=== PATIENT | female | born 1965 | race Caucasian/White ===

== ENCOUNTER 2017-02-04 06:00 | Inpatient (IN) | payer OTHER ==
[~2017-02-04] VITALS: Ht 162.6 cm; Wt 87.1 kg
--- NOTE | ~2017-02-04 | PN ---
Unit #: [id number] #: [id number] Patient: FLORY HUFFMAN [id number] [facility] [address] [place] [address] [id number] I MR#: [id number] NAME: FLORY HUFFMAN. ROOM: 63 Age: 51 Sex: F Admission Date: 02/04/2017 : 1965 Attending Physician: Israel Harris M.D. Admitting Physician: Israel Harris M.D. Primary Care Physician: Analilia Hollis PROGRESS NOTES DATE 02/09/2017 DISCUSSION Flory is looking a little better this morning with a better mood and a brighter affect. She still complains of significant anxiety but does not appear to be particularly anxious during my assessment. She is able to attend groups and activities now and is more social on the unit. She is alert and fully oriented with no active psychosis. She still has vague suicidal ideation but contracts for safety in the hospital. ASSESSMENT Bipolar depressed. PLAN Continue current treatment plan. Dictated by... Analilia Hicks/tejas TD: 02/11/2017 04:59 JOB #: [id number] [facility] PROGRESS NOTES Page 1 of 1 X Israel Harris MD PROGRESS NOTE
--- NOTE | ~2017-02-04 | PN ---
Unit #: [id number] #: [id number] Patient: FLORY HUFFMAN [id number] [facility] [address] [place] [address] [id number] MR#: [id number] NAME: FLORY HUFFMAN. ROOM: 63 Age: 51 Sex: F Admission Date: 02/04/2017 : 1965 Attending Physician: Israel Harris M.D. Admitting Physician: Israel Harris M.D. Primary Care Physician: Analilia Hollis PROGRESS NOTES DATE 02/08/2017 DISCUSSION Flory continues to be isolative from peers, although she does occasionally come out to talk to staff, she is eating and drinking well and compliant with her medications. She complains of difficulty sleeping. She has a depressed mood with a congruent affect, she is alert and fully oriented with no active psychosis. She continues to report suicidal ideation. She is not engaged in any self-harming behaviors in the hospital. ASSESSMENT Major depression. PLAN Increase trazodone to 150 mg at bedtime, and continue with recently increased dose of Zoloft to 150 mg daily. Dictated by... Analilia Hicks/tejas TD: 02/10/2017 13:18 JOB #: [id number] [facility] BLACK NOTES Page 1 of 1 X Israel Harris MD X PROGRESS NOTE
--- NOTE | ~2017-02-04 | DS ---
Unit #: [id number] #: [id number] Patient: FLORY HUFFMAN [id number] [place] [address] [id number] I MR#: [id number] NAME: FLORY HUFFMAN. ROOM: 63 Age: 51 Sex: F Admission Date: 02/04/2017 : 1965 Discharge Date: 02/11/2017 Attending Physician: Israel Harris M.D. Primary Care Physician: Bharathi Vargas M.D. DISCHARGE SUMMARY REASON FOR ADMISSION Flory is a 51-year-old woman with a previous admission to this facility, who has reported that she felt "lost and don't want to live." She made some cuts on her arm and was admitted for stabilization. DIAGNOSTIC STUDIES LABORATORY RESULTS: Please see hospital chart. HOSPITAL COURSE The patient was admitted and placed on suicide precautions. Zoloft was increased to 150 mg daily and buspirone 15 mg b.i.d. was added for control of anxiety. The patient was initially isolated from peers and staff and complained of difficulty sleeping. Trazodone was increased to 150 mg at bedtime to improve control of insomnia. She was able to get up and around on the unit, participating in psychotherapy groups and activities after a couple of days, and had an episode of acute gastrointestinal upset and treated with Imodium and Zofran. On the date of discharge, she was able to contract for safety in the outpatient setting. DISCHARGE DIAGNOSES AXIS I: Major depression, recurrent, F33.2 and history of polysubstance dependence. AXIS II: Personality disorder, not otherwise specified. AXIS III: Fibromyalgia, hypertension, chronic obstructive pulmonary disease, and chronic pain. AXIS IV: AXIS V: DISCHARGE INSTRUCTIONS Follow up with [facility] and the [facility]. DISCHARGE MEDICATIONS Zoloft 150 mg daily for depression, trazodone 150 mg at bedtime as needed for insomnia, and BuSpar 15 mg b.i.d. for anxiety. Primary care medicines were Zestril 20 mg daily for hypertension, hydrochlorothiazide 12.5 mg daily for hypertension, Singulair 10 mg at bedtime for asthma, and Proventil inhaler 2 puffs every 4 hours as needed for shortness of air. CONDITION AT DISCHARGE Improved. PROGNOSIS Unit #: [id number] #: [id number] Patient: FLORY HUFFMAN Fair to good. DIET AND ACTIVITY Ad eugenie. Dictated by... Analilia Hicks/berhane TD: 02/11/2017 17:46 JOB #: [id number] DISCHARGE SUMMARY Page 1 of 1 X Israel Harris MD X DISCHARGE SUMMARY
--- NOTE | ~2017-02-04 | HP ---
Unit #: [id number] #: [id number] Patient: FLORY HUFFMAN [id number] [place] [address] [id number] I MR#: [id number] NAME: FLORY HUFFMAN. ROOM: P263 Age: 51 Sex: F Admission Date: 02/04/2017 : 1965 Attending Physician: Israel Harris M.D. Admitting Physician: Israel Harris M.D. Primary Care Physician: Bharathi Vargas M.D. HISTORY AND PHYSICAL HISTORY OF PRESENT ILLNESS Flory is a 51 year old admitted to [address] [place] [address] with depression and self-harming behavior. She has been scratching her arms. She has had other admissions to this facility. PAST MEDICAL HISTORY 1. Morbid obesity. 2. High blood pressure. 3. COPD. 4. History of anemia. 5. History of poly-illicit substance abuse to include opioids and methamphetamine. PAST SURGICAL HISTORY 1. Hysterectomy. 2. Cholecystectomy. 3. Right ankle. ALLERGIES Mobic, ibuprofen, tramadol. SOCIAL HISTORY Smokes 1 pack per day. Denies alcohol. Admits to a history of poly-illicit substance abuse to include methamphetamine and opioids. FAMILY HISTORY Medically noncontributory. REVIEW OF SYSTEMS CONSTITUTIONAL: No fever or chills. HEENT: Denies any sore throat, ear pain or runny nose. CARDIOVASCULAR: Denies chest pain, irregular heart rhythm or palpitations. CHEST: Denies shortness of breath or cough. No hemoptysis. GASTROINTESTINAL: Denies nausea, vomiting, diarrhea or chronic constipation. ENDOCRINE: Denies history of increased thirst or urination. No recent significant weight loss or gain. GENITOURINARY: Denies dysuria, frequency, or hematuria. SKIN: Denies any rashes. HEMATOLOGIC: Denies history of increased bleeding or bruising. MUSCULOSKELETAL: Denies any hot, swollen joints. No generalized muscle pain. NEUROLOGIC: Denies problems with vision or speech. No frequent, severe Unit #: [id number] #: [id number] Patient: FLORY HUFFMAN headaches. No numbness, tingling or weakness in any extremities. Denies loss of bladder or bowel control. CURRENT MEDICATIONS 1. HCTZ 12.5 mg daily. 2. Zestril 20 mg daily. 3. Desyrel 100 mg q.h.s. 4. Singulair 10 mg daily. 5. Zoloft 100 mg q.h.s. 6. BuSpar 15 mg b.i.d. 7. Milk of Magnesia p.r.n. 8. Maalox p.r.n. 9. Tylenol p.r.n. 10. Proventil inhaler p.r.n. 11. Nicotine patch 14 mg daily. PHYSICAL EXAMINATION GENERAL: Alert, well-nourished, in no apparent distress. VITAL SIGNS: Blood pressure 154/110, heart rate 80, respirations 16, temperature 98.6. WEIGHT: 192. HEIGHT: 5 feet 4 inches. SKIN: Warm and dry without rash. She does have multiple superficial scratches along both arms. There is no increased redness, swelling, heat or pus noted. HEENT: Normocephalic. TMs not viewed. Oral and nasal passages clear. Conjunctivae clear. PERRLA. EOMs intact. NECK: Supple without lymphadenopathy or thyromegaly. HEART: Regular rate and rhythm without murmur. LUNGS: Clear. ABDOMEN: Soft, nontender. : Not done. EXTREMITIES: No evidence of cyanosis, clubbing or edema. Moves all without focal deficit. NEUROLOGICAL: Grossly within normal limits. Cranial Nerves: II: Visual leal are intact. III, IV AND : Extraocular movements are intact. Pupils are equal, round and reactive to light. V: Facial sensation is grossly normal. VII: Facial movements and expression are normal. VIII: Auditory acuity grossly intact. IX, X: Uvula is midline. Phonation is normal. XI: Patient shrugs shoulders and turns head normally. XII: Tongue protrudes in the midline. Sensory and Motor Function: Sensory and motor sensation is grossly normal. Motor: moves all extremities well. Coordination: Gait is normal. Deep Tendon Reflexes: Intact. IMPRESSION Psychiatric admission. RECOMMENDATIONS PSYCHIATRIC: Per psychiatrist. MEDICAL: 1. See no contraindication to participate in facility's activities. 2. Keep the scratches clean with soap and water. No further Rx. 3. Continue HCTZ and Zestril. Monitor blood pressure q. shift. 4. Continue Proventil inhaler. Unit #: [id number] #: [id number] Patient: FLORY HUFFMAN MEDICAL PROGNOSIS Good. MEDICAL CONDITION Stable. Dictated by... Mavis Koo P.A.-C. for Analilia Hall/ming TD: 02/04/2017 19:59 JOB #: [id number] HISTORY AND PHYSICAL Page 1 of 1 X Mavis Koo X HISTORY AND PHYSICAL
--- NOTE | ~2017-02-04 | PN ---
Unit #: [id number] #: [id number] Patient: FLORY HUFFMAN [id number] [facility] [address] [place] [address] [id number] MR#: [id number] NAME: FLORY HUFFMAN. ROOM: 63 Age: 51 Sex: F Admission Date: 02/04/2017 : 1965 Attending Physician: Israel Harris M.D. Admitting Physician: Israel Harris M.D. Primary Care Physician: Analilia Hollis PROGRESS NOTES DATE 02/06/2017 DISCUSSION Flory is tolerating her increased dose of Zoloft and other medications with no adverse side effects. Her mood is the same with depression, anxiety and congruent affect. She is alert and fully oriented. Her memory and concentration are fair to good. Her thought processes are goal directed with no active psychosis. She does report ongoing suicidal ideation. ASSESSMENT Major depression. PLAN Continue current treatment plan. Dictated by... Analilia Hicks/rika TD: 02/12/2017 03:48 JOB #: [id number] [facility] PROGRESS NOTES Page 1 of 1 X Israel Harris MD X PROGRESS NOTE
--- NOTE | ~2017-02-04 | PA ---
Unit #: [id number] #: [id number] Patient: FLORY HUFFMAN [id number] [place] [address] [id number] I MR#: [id number] NAME: FLORY HUFFMAN. ROOM: [facility] Age: 51 Sex: F Admission Date: 02/04/2017 : 1965 Date of Assessment: Attending Physician: Israel Harris M.D. Admitting Physician: Israel Harris M.D. Primary Care Physician: Bharathi Vargas M.D. PSYCHIATRIC ASSESSMENT DATE OF SERVICE 02/05/2017. INFORMANTS The patient, reliable and OLOP, reliable. CHIEF COMPLAINT Suicidal ideation. HISTORY OF PRESENT ILLNESS Flory is a 51-year-old woman with previous admission to this facility, who reports she was recently discharged from [facility] for a potassium deficiency. She says "I feel lost and don't want to live" and had made superficial bueno on her arm. She was unable to contract for safety and was admitted for psychiatric stabilization. PAST PSYCHIATRIC HISTORY Last admission in this facility was in 05/2010 and she has been at [facility] in the past. FAMILY PSYCHIATRIC HISTORY There is a family history of both mental illness and chemical dependence. SOCIAL HISTORY The patient is to a man who is supportive, but has depression and substance use problems on his own. She has 5 living children with no legal custody. She is a high school graduate, who is currently on disability. PAST MEDICAL HISTORY Significant for back pain, fibromyalgia, COPD, and hypertension. MEDICATIONS Please see MAR. ALLERGIES No known medication allergies. SUBSTANCE ABUSE HISTORY The patient has a history of chemical dependence and legal charges related to same. MENTAL STATUS EXAMINATION Unit #: [id number] #: [id number] Patient: FLORY HUFFMAN The patient presented as a mildly disheveled woman, who appeared her stated age. She was cooperative with the examination. Her speech was spontaneous and easily understood. Musculoskeletal examination was calm. Her mood was depressed with a congruent affect. She was alert and fully oriented. Memory and concentration were fair. Thought processes were goal directed with no active psychosis. She reported suicidal ideation with a plan to cut herself and could not contract for safety outside of the hospital. Her insight and judgment were fair. Her fund of knowledge and abstraction were fair. ASSETS AND LIABILITIES The patient knows local resources and presents voluntarily for treatment. Liabilities include difficulty with housing and income and lack of current treatment plan. ADMITTING DIAGNOSES AXIS I: Major depression, F33.2 and history of polysubstance dependence. AXIS II: Personality disorder, not otherwise specified. AXIS III: Fibromyalgia, hypertension, chronic obstructive pulmonary disease, and chronic pain. AXIS IV: AXIS V: PSYCHIATRIC PLAN The patient was admitted and placed on suicide precautions. Zoloft will be continued with an increase to 150 mg daily and buspirone added 15 mg b.i.d. for anxiety. Her other medications will be continued at their current doses. She will enroll in dual diagnosis groups and activities, and physical examination and laboratory studies will be ordered and reviewed. TREATMENT GOALS Resolution of SI, improvement in mood, improvement in insight, and improvement in coping skills. DISCHARGE PLANNING Follow up with [facility]. ESTIMATED LENGTH OF STAY 5 days. Dictated by... Israel Harris M.D. MALIHA/berhane TD: 02/08/2017 18:00 JOB #: [id number] Unit #: [id number] #: [id number] Patient: FLORY HUFFMAN PSYCHIATRIC ASSESSMENT Page 1 of 1 X Israel Harris MD X PSYCHIATRIC ASSESSMENT
--- NOTE | ~2017-02-04 | PN ---
Unit #: [id number] #: [id number] Patient: FLORY HUFFMAN [id number] [facility] [address] [place] [address] [id number] I MR#: [id number] NAME: FLORY HUFFMAN ROOM: P263 Age: 51 Sex: F Admission Date: 02/04/2017 : 1965 Attending Physician: Israel Harris M.D. Admitting Physician: Israel Harris M.D. Primary Care Physician: Analilia Hollis PROGRESS NOTES DATE 02/10/2017 DISCUSSION Flory complains of some diarrhea and nausea today. She is compliant with her medications and reports her mood is a little better. She is alert and fully oriented. Her memory and concentration are intact. Thought processes are logical. No active psychosis. ASSESSMENT Major depression. PLAN We will add Imodium and Zofran and anticipate discharge in the near future. Dictated by... Analilia Hicks/mary ellen TD: 02/11/2017 15:06 JOB #: [id number] [facility] PROGRESS NOTES Page 1 of 1 X Israel Harris MD PROGRESS NOTE
--- NOTE | ~2017-02-04 | PN ---
Unit #: [id number] #: [id number] Patient: ALVARADO HUFFMAN [id number] [facility] [address] [place] [address] [id number] I MR#: [id number] NAME: ALVARADO HUFFMAN ROOM: P263 Age: 51 Sex: F Admission Date: 02/04/2017 : 1965 Attending Physician: Israel Harris M.D. Admitting Physician: Israel Harris M.D. Primary Care Physician: Analilia Hollis PROGRESS NOTES DATE 02/05/2017 DISCUSSION Digna continues to have acute depression today. She is isolative in her room and complains of anxiety. She is alert and fully oriented. Her memory and concentration are fair. Her thought processes are logical with no active psychosis. She does report ongoing suicidal ideation. ASSESSMENT Major depression. PLAN Continue current treatment plan. Dictated by... Israel Harris M.D. MALIHA/rika TD: 02/12/2017 03:47 JOB #: [id number] [facility] PROGRESS NOTES Page 1 of 1 X Israel Harris MD X PROGRESS NOTE
[~2017-02-04 06:00] MED LIST: ALBUTEROL MININEB NEB; BACTRIM DS TABL1 TA1 PO; BACTROBAN22 GM TP; BENADRYL ALLERG25 MG PO; CIPRO PO; CLINDAMYCIN HC300 MG PO; COMBIVENT INH14.7 GM; COMBIVENT U/D3 ML; DESYREL100 MG; DICLOFENAC PO; FAMOTIDINE PO; FLEXERIL; FLEXERIL PO; FLEXERIL10 M1 PO; FLEXERIL10 MG PO; GINGER; HIBICLENS 4% L120 ML TOP; HYDROCODON-ACE1 EAC7 PO; IBUPROFEN; IBUPROFEN800 MG PO; IRON1 TA1; IRON325 ( 651 PO; KCL; KETOPROFEN PO; LASIX20 MG; LOPRESSOR; LOPRESSOR PO; LORTAB 10-5001 EACH; LORTAB 5/500 TA1 TA1 PO; MEDROL4 MG/DOSE- PO; METOPROLOL SUCC50 MG PO; MICRO-K10 MEQ; MOBIC; MOBIC PO; MOBIC7.5 MG/5 M PO; NO MEDICATIONS; NORCO 5/325 TAB1 TAB PO; OMEPRAZOLE40 MG PO; ORUDIS75 M1 PO; OTC STOOL SOFTENER; PAXIL; PAXIL PO; PEN-VEE K PO; PHENERGAN PO; PHENERGAN SUPP25 MG PR; PHENERGAN25 MG; POTASSIUM99 M1; PREDNISONE PO; PROTONIX; PROTONIX PO; PROVENTIL17 G1; PYRIDIUM PO; REMERON; ROBAXIN500 MG; ROBAXIN500 MG PO; SINGULAIR PO; STOOL SOFTENER50 MG; THORAZINE; TORADOL10 MG PO; TRAMADOL HCL50 M1 PO; TRAZODONE; TRAZODONE HCL100 MG PO; TYLENOL #3 PO; ULTRAM; ULTRAM PO; VICODIN 5/1 TAB 5/50 PO; VICODIN 5/500 T1 TAB PO; VISTARIL; VISTARIL50 MG PO; VOLTAREN50 MG PO; VOLTAREN75 MG; VOLTAREN75 MG PO; ZOFRAN; ZOFRAN8 MG PO; [UNRECOGNIZED DRUG - REMARK] PO
[2017-02-04 13:14] LABS: AMPHETAMINE POS (NEG); BARBITURATES NEG (NEG); BENZODIAZEPINES NEG (NEG); COCAINE NEG (NEG); MARIJUANA NEG (NEG); OPIATES NEG (NEG); TRICYCLIC ANTIDEPRESSANTS NEG (NEG); U METHADONE NEG (NEG)
[2017-02-05 09:41] LABS: BASOPHIL# 0.1 X10e3 (0-0.3); BASOPHIL% 1.2 % (0-2.5); EOSINOPHIL# 0.8 X10e3 (0-0.7); EOSINOPHIL% 6.6 % (0.0-7.0); HEMATOCRIT 37.1 % (35.0-45.0); HEMOGLOBIN 12.8 gm/dL (12.0-16.0); LYMPHOCYTE# 2.1 X10e3 (1.0-3.5); LYMPHOCYTE% 17.9 % (17.0-45.0); MEAN CELL VOLUME 81.3 FL (83-96); MEAN CORPUSCULAR HGB CONC 34.5 g/dL (30-36); MEAN PLATELET VOLUME 7.4 FL (6.5-11.5); MONOCYTE# 0.9 X10e3 (0-1.0); MONOCYTE% 7.4 % (3.0-12.0); NEUTROPHIL# 7.8 X10e3 (1.5-7.1); NEUTROPHIL% 66.9 % (40-75); PLATELET COUNT 346 X10e3 (140-420); RED BLOOD COUNT 4.56 X10e (3.90-5.30); RED CELL DISTRIBUTION WIDTH 14.1 % (11.0-15.5); WHITE BLOOD COUNT 11.7 X10e3 (4.0-10.5)
[2017-02-05 09:52] LABS: ALBUMIN SERUM 3.9 g/dL (3.5-5.0); BILIRUBIN,TOTAL 0.9 mg/dL (0.2-2.0); BUN/CREATININE RATIO 13.33; CALCIUM SERUM 9.5 mg/dL (8.4-10.2); CREATININE SERUM 0.9 mg/dL (0.6-1.4); DIFF IND NO; GLOM FILT RATE Estimated 75.1 mL/min (>60); POTASSIUM 3.6 mmol/L (3.5-5.1)
== END 2017-02-11 15:10 | disposition home or self-care (01) | DRG 885 ==
LOC: P2L 08:26
PROVIDERS: Psychiatry & Neurology Psychiatry
DX: F33.2 Major depressive disorder, recurrent severe without psychotic features (principal); I10 Essential (primary) hypertension; F60.9 Personality disorder, unspecified; M79.7 Fibromyalgia; J44.9 Chronic obstructive pulmonary disease, unspecified; G89.29 Other chronic pain; F19.21 Other psychoactive substance dependence, in remission
CPT/HCPCS: 80053; 80307; 85025